=== PATIENT | male | born 1950 | race Caucasian/White ===

== ENCOUNTER → 2017-02-28 | Outpatient (CLI) | payer MEDICARE, BC | LOC: MW.CHUR 11:31 | PROVIDERS: ATTEND Urology | DX: R97.20 Elevated prostate specific antigen [PSA] (principal); N40.0 Benign prostatic hyperplasia without lower urinary tract symptoms; R33.9 Retention of urine, unspecified; N39.0 Urinary tract infection, site not specified | CPT/HCPCS: 36415; 51702; 51798; 81001; 84153; 87086; G0463 ==

== ENCOUNTER → 2017-03-05 | Outpatient (CLI) | payer MEDICARE, BC | LOC: MW.CHUR 08:00 | PROVIDERS: ATTEND Urology | DX: R33.9 Retention of urine, unspecified (principal) | CPT/HCPCS: 51798; G0463 ==

== ENCOUNTER 2017-07-10 14:38 | Emergency (ER) | payer MEDICARE, BC ==
--- NOTE | 2017-07-10 15:21 | EDM.PDOC ---
ED HPI GENERAL MEDICAL PROBLEM - General Chief Complaint: Cardiovascular Problem Stated Complaint: HIGH BP Time Seen by Provider: 07/10/17 15:01 - History of Present Illness INITIAL COMMENTS - FREE TEXT/NARRATIVE: HISTORY AND PHYSICAL: History of present illness: The patient is a 67-year-old male who follows at [facility] with Dr. Rasheed in with a history of hypertension and a defibrillator, I'm familiar with this patient as I treated him and cardioverted him for V. tach this past spring and he has since followed up with a field service representative at [facility] in [place]. He says he last saw Dr. Rasheed in the clinic mid May and there were no changes to his medication and he states compliance. The patient says that he follows his blood pressure at home and it was elevated so he went to [facility] for a blood pressure check and they noted it to be 200/80 and sent him here. According to Dr. Rasheed the patient did not to wait for him to address his elevation and he came here directly. The patient has no complaints of headache blurred vision numbness or tingling in his extremities, extremity weakness neck pain back pain chest pain shortness of breath nausea or vomiting. He says is completely asymptomatic. Review of systems: As per history of present illness and below otherwise all systems reviewed and negative. Past medical history: As per history of present illness and as reviewed below otherwise noncontributory. Surgical history: As per history of present illness and as reviewed below otherwise noncontributory. Social history: No reported history of drug or alcohol abuse. Family history: As per history of present illness and as reviewed below otherwise noncontributory. Physical exam: Gen.: Well-developed well-nourished man who is mildly overweight and nontoxic. Initial blood pressure on arrival here was 190/102, and repeat BP without any intervention it was 147/80 HEENT: Atraumatic, normocephalic, negative for conjunctival pallor or scleral icterus, mucous membranes moist, throat clear, neck supple, nontender, trachea midline. Lungs: Clear to auscultation, breath sounds equal bilaterally, chest nontender. Heart: S1S2, regular rate and rhythm there is a loud systolic ejection murmur at the left sternal border which patient says is old Abdomen: Soft, nondistended, nontender. Negative for masses or hepatosplenomegaly. Negative for costovertebral tenderness. Pelvis: Stable nontender. Genitourinary: Deferred. Rectal: Deferred. Extremities: Atraumatic, negative for cords or calf pain. Neurovascular unremarkable. No pedal edema or leg asymmetry Neuro: Awake, alert, oriented. Cranial nerves II through XII unremarkable. Cerebellum unremarkable. Motor and sensory unremarkable throughout. Exam nonfocal. Diagnostics: [] Therapeutics: [] As the patient did not want a full workup I discussed with Dr. Rasheed at 1508 adjusting his blood pressure medications, which Dr. Rasheed said he was planning on doing in light of these elevated pressures. We have decided to increase his Toprol 50 mg from once a day to twice a day and the patient is aware and will do this. He is aware that he should call and follow-up in the clinic and return here if he starts having any symptomatology of elevated blood pressures Impression: Hypertension with elevations Definitive disposition and diagnosis as appropriate pending reevaluation and review of above. Headache Pain Score (Numeric/FACES): 3 - Related Data Allergies Allergy/AdvReac Type Severity Reaction Status Date / Time No Known Allergies Allergy Verified 07/10/17 15:01 Home Meds: Home Meds Lisinopril 20 mg PO BID 11/26/14 [History] Verapamil [Verelan] 120 mg PO BID 11/26/14 [History] Warfarin Sodium 5 mg PO DAILY 11/26/14 [History] atorvaSTATin [Lipitor] 20 mg PO BEDTIME 06/16/15 [History] Cinnamon Bark [Cinnamon] 2,000 mg PO BID 08/22/15 [History] Flaxseed Oil [Flaxseed] 1,200 mg PO BID 08/22/15 [History] Amiodarone [Cordarone] 200 mg PO DAILY #30 tablet 11/03/16 [Rx] Amiodarone [Cordarone] 200 mg PO TID #31 tablet 11/03/16 [Rx] Past Medical History Other HEENT History: wears eyeglasses Cardiovascular History: Reports: Heart Murmur, Other (See Below) Other Cardiovascular History: heart murmur; atrial fibrillation Other Respiratory History: for booster dose of pneumonia Other Gastrointestinal History: polyp removal X 4 Genitourinary History: Reports: None Dermatologic History: Reports: Melanoma - Infectious Disease History Infectious Disease History: Reports: Shingles Other Infectious Disease History: SHINGLES APRIL 2015 - Past Surgical History HEENT Surgical History: Reports: None Cardiovascular Surgical History: Reports: Other (See Below) Other Cardiovascular Surgeries/Procedures: ablation 13 years ago Respiratory Surgical History: Reports: None GI Surgical History: Reports: Colonoscopy Male Surgical History: Reports: TURP-Transurethral Resection of Prostate Social & Family History - Family History Family Medical History: Noncontributory - Tobacco Use Smoking Status *Q: Never Smoker Second Hand Smoke Exposure: No - Caffeine Use Caffeine Use: Reports: Soda - Alcohol Use Number of Drinks Per Day: 0 - Recreational Drug Use Recreational Drug Use: No Drug Use in Last 12 Months: No ED ROS GENERAL - Review of Systems Review Of Systems: ROS reveals no pertinent complaints other than HPI. ED EXAM, GENERAL - Physical Exam Exam: See Below (See dictation) Course - Vital Signs Last Recorded V/S: Last Vital Signs Temp 36.3 C 07/10/17 15:01 Pulse 99 07/10/17 15:01 Resp 16 07/10/17 15:01 BP 190/102 H 07/10/17 15:01 Pulse Ox 96 07/10/17 15:01 Departure - Departure Time of Disposition: 15:21 Disposition: Home, Self-Care 01 Condition: Good Clinical Impression: Elevated blood pressure reading Hypertension Qualifiers: Hypertension type: unspecified Qualified Code(s): I10 - Essential (primary) hypertension Referrals: Ty Rasheed MD [Primary Care Provider] - Additional Instructions: The following information is given to patients seen in the emergency department who are being discharged to home. This information is to outline your options for follow-up care. We provide all patients seen in our emergency department with a follow-up referral. The need for follow-up, as well as the timing and circumstances, are variable depending upon the specifics of your emergency department visit. If you don't have a primary care physician on staff, we will provide you with a referral. We always advise you to contact your personal physician following an emergency department visit to inform them of the circumstance of the visit and for follow-up with them and/or the need for any referrals to a consulting specialist. The emergency department will also refer you to a specialist when appropriate. This referral assures that you have the opportunity for followup care with a specialist. All of these measure are taken in an effort to provide you with optimal care, which includes your followup. Under all circumstances we always encourage you to contact your private physician who remains a resource for coordinating your care. When calling for followup care, please make the office aware that this follow-up is from your recent emergency room visit. If for any reason you are refused follow-up, please contact the [facility] emergency department at and ask to speak to the emergency department charge nurse. [address] [place] [address] Please increase your Toprol to twice a day as we discussed. Please call and follow-up with Dr. Rasheed in the clinic and return to ER as needed and as we discussed
[2017-07-10 15:53] VITALS: BP 159/86
== END 2017-07-10 15:57 | disposition home or self-care (01) ==
LOC: MW.ED 14:38
DX: I10 Essential (primary) hypertension (principal); I48.91 Unspecified atrial fibrillation; Z85.820 Personal history of malignant melanoma of skin; Z98.890 Other specified postprocedural states; Z79.01 Long term (current) use of anticoagulants; Z79.899 Other long term (current) drug therapy
CPT/HCPCS: 99283

== ENCOUNTER 2017-07-20 10:29 | Day surgery (SDC) | payer MEDICARE, BC ==
[~2017-07-20 10:29] MED LIST: Lactated Ringers 1,000 ML IV SCH
[2017-07-20] MEDS ORDERED: cefOXitin 2 GM in Premix Bag 1 BAG IV ONE (10:49)
--- NOTE | 2017-07-20 10:56 | PCM.PREANE ---
Preanesthetic Assessment - Anesthesia/Transfusion/Family Hx Anesthesia History: Prior Anesthesia Without Reaction Other Type of Anesthesia Reaction Comment: Denies any known problem in past Family History of Anesthesia Reaction: No Transfusion History: No Prior Transfusion(s) - Review of Systems General: No Symptoms Pulmonary: No Symptoms Cardiovascular: No Symptoms Gastrointestinal: No Symptoms Neurological: No Symptoms Other: Reports: None - Physical Assessment NPO Status Date: 07/19/17 Height: 1.83 m Weight: 117.027 kg ASA Class: 3 Mental Status: Alert & Oriented x3 Airway Class: Mallampati = 2 Dentition: Reports: Normal Dentition ROM/Head Extension: Full Lungs: Clear to Auscultation, Normal Respiratory Effort Cardiovascular: Regular Rate, Regular Rhythm - Allergies Allergies/Adverse Reactions: Allergies Allergy/AdvReac Type Severity Reaction Status Date / Time No Known Allergies Allergy Verified 07/18/17 11:49 - Anesthesia Plan Pre-Op Medication Ordered: None (PMH hx afib, hx v tach, has AICD, on coumadin stopped x 4 days, HTN, HLD, ) - Acknowledgements Anesthesia Type Planned: MAC Pt an Appropriate Candidate for the Planned Anesthesia: Yes Alternatives and Risks of Anesthesia Discussed w Pt/Guardian: Yes Pt/Guardian Understands and Agrees with Anesthesia Plan: Yes PreAnesthesia Questionnaire Other HEENT History: wears glasses Cardiovascular History: Reports: Afib, High Cholesterol, Hypertension, Other ( See Below) Other Cardiovascular History: hx of v-tach, hx of mitral valve insufficiency Other Respiratory History: for booster dose of pneumonia Gastrointestinal History: Reports: Colon Polyp Other Gastrointestinal History: polyp removal X 4 Genitourinary History: Reports: BPH Endocrine/Metabolic History: Reports: Obesity/BMI 30+ Hematologic History: Reports: Anticoagulation Therapy Oncologic (Cancer) History: Reports: Other (See Below) Other Oncologic History: hx of 2 skin lesions on face removed Dermatologic History: Reports: Melanoma - Infectious Disease History Infectious Disease History: Reports: Shingles Other Infectious Disease History: SHINGLES APRIL 2015 - Past Surgical History Head Surgeries/Procedures: Reports: None Cardiovascular Surgical History: Reports: Cardiac Ablation, Other (See Below) Other Cardiovascular Surgeries/Procedures: defibrillator inserted GI Surgical History: Reports: Colonoscopy Male Surgical History: Reports: TURP-Transurethral Resection of Prostate - SUBSTANCE USE Smoking Status *Q: Never Smoker Second Hand Smoke Exposure: No Number of Drinks Per Day: 0 Recreational Drug Use History: No - HOME MEDS Home Medications: Home Meds Lisinopril 20 mg PO BID 11/26/14 [History] Warfarin Sodium 5 mg PO DAILY 11/26/14 [History] atorvaSTATin [Lipitor] 20 mg PO BEDTIME 06/16/15 [History] Cinnamon Bark [Cinnamon] 2,000 mg PO BID 08/22/15 [History] Flaxseed Oil [Flaxseed] 1,200 mg PO BID 08/22/15 [History] Cholecalciferol (Vitamin D3) [Vitamin D] 5,000 unit PO DAILY 07/10/17 [History] Lutein/Minerals/Vit A,C & E [Ocuvite] 1 each PO BID 07/10/17 [History] Metoprolol Succinate [Toprol XL] 50 mg PO BID 07/10/17 [History] Mexiletine HCl 150 mg PO TID 07/10/17 [History] - CURRENT (IN HOUSE) MEDS Current Meds: Current Medications Lactated Ringer's (Ringers, Lactated) 1,000 mls @ 125 mls/hr IV ASDIRECTED [facility] Cefoxitin Sodium 2 gm/ Premix 50 mls @ 100 mls/hr IV ONETIME ONE Stop: 07/20/17 11:18
[2017-07-20] MEDS ORDERED: Sodium Chloride 0.9% 20 ML ONE (11:20)
[2017-07-20] MEDS ORDERED: cefOXitin 1 GM Vial ONE (11:20)
[2017-07-20] MEDS ORDERED: Propofol 200 MG/20 ML SDV ONE (11:37)
[2017-07-20] MEDS ORDERED: Ondansetron 4 MG/2 ML SDV ONE (11:37)
[2017-07-20] MEDS ORDERED: Midazolam 1 MG/ML 2 ML SDV ONE (11:37)
[2017-07-20] MEDS ORDERED: fentaNYL 100 MCG/2 ML SDV ONE (11:38)
--- NOTE | 2017-07-20 12:14 | PCM.OPNOTE ---
- General Post-Op/Procedure Note Date of Surgery/Procedure: 07/20/17 Operative Procedure(s): Colonoscopy with cold transverse colon polypectomy Pre Op Diagnosis: Personal history of colon polyps Post-Op Diagnosis: Transverse colon polyp Anesthesia Technique: MAC (ASA III) Primary Surgeon: Jersey Baugh Electric Organ Inspector And Repairer: Briana Callaway Condition: Good Free Text/Narrative:: Intake & Output 07/20/17 07/20/17 07/20/17 03:59 11:59 19:59 Intake Total 700 Balance 700 Dictation [id number] CPT CODE 50812
[2017-07-20] MEDS ORDERED: Lactated Ringers 1,000 ML IV SCH (12:15)
[2017-07-20 12:30] VITALS: BP 118/68
--- NOTE | 2017-07-20 14:05 | OR ---
SURGEON: Jersey Baugh M.D. DATE OF PROCEDURE: 07/20/2017 OPERATION PERFORMED: Colonoscopy with cold transverse colon polypectomy. ANESTHESIA: MAC. ASA CLASSIFICATION: III. PREOPERATIVE DIAGNOSIS: Personal history of colon polyps. POSTOPERATIVE DIAGNOSIS: Small transverse colon polyp. DESCRIPTION OF PROCEDURE: The patient was taken to the endoscopy room, positioned on the endoscopy table in the left lateral decubitus position. Time-out was called for appropriate identification of the patient and procedure. Monitored anesthesia care was provided. The colonoscope was inserted into the rectum and advanced with minimal difficulty to the cecum, where the colonoscope was retroflexed to visualize the ascending colon from below. The colonoscope was then straightened and slowly withdrawn. The cecum and ascending colon showed no tumors, polyps, diverticula, or angiodysplastic changes. One small polyp was encountered in the transverse colon and removed with the cold biopsy forceps. No significant bleeding was noted. The remainder of the transverse colon, splenic flexure, descending colon, sigmoid colon, and rectum were very well visualized. Again, no tumors or polyps were seen. There was no evidence of inflammatory bowel disease nor any evidence of angiodysplasia. The colonoscope was withdrawn to the rectum and retroflexed to visualize the anal orifice from above. No tumors, polyps, or acute hemorrhoidal changes were noted. The colonoscope was then straightened, the rectum aspirated, and the colonoscope removed. The patient tolerated the procedure well and was taken to recovery room in stable condition. GIOVANNI / TOMMY /[id number]
--- NOTE | 2017-08-13 06:14 | PCM.SN ---
- Free Text/Narrative Note: Pixus waste amt should have been 70 instead of 80mg.
== END 2017-07-20 12:51 | disposition home or self-care (01) ==
LOC: MW.SDS 10:29
PROVIDERS: ATTEND Surgery
DX: Z12.11 Encounter for screening for malignant neoplasm of colon (principal); D12.3 Benign neoplasm of transverse colon; Z86.010 Personal history of colon polyps; I48.91 Unspecified atrial fibrillation; I10 Essential (primary) hypertension; I47.2 Ventricular tachycardia; N40.0 Benign prostatic hyperplasia without lower urinary tract symptoms; E78.00 Pure hypercholesterolemia, unspecified; E66.9 Obesity, unspecified; Z87.440 Personal history of urinary (tract) infections; Z87.74 Personal history of (corrected) congenital malformations of heart and circulatory system; Z80.0 Family history of malignant neoplasm of digestive organs; Z79.01 Long term (current) use of anticoagulants; Z79.899 Other long term (current) drug therapy; Z98.890 Other specified postprocedural states; Z68.35 Body mass index [BMI] 35.0-35.9, adult; Z95.810 Presence of automatic (implantable) cardiac defibrillator; Z90.79 Acquired absence of other genital organ(s); Z85.820 Personal history of malignant melanoma of skin
CPT/HCPCS: 36415; 45380; 85610; J0694; J2250; J2405; J3010; J7120; 00810; 88305; J2704

== ENCOUNTER 2017-08-12 08:37 | Emergency (ER) | payer MEDICARE, BC ==
[2017-08-12] MEDS ORDERED: Sodium Chloride 0.9% 1,000 ML IV ONE (08:40)
--- NOTE | 2017-08-12 08:56 | EDM.PDOC ---
ED HPI GENERAL MEDICAL PROBLEM - General Chief Complaint: Chest Pain Stated Complaint: MEDICATION SIDE EFFECT/IRREGULAR HEARTBEAT Time Seen by Provider: 08/12/17 08:56 Source of Information: Reports: Patient - History of Present Illness INITIAL COMMENTS - FREE TEXT/NARRATIVE: HISTORY AND PHYSICAL: History of present illness: []Patient with atrial fibrillation history presents with rapid heart rate sensation or palpitation over the last week, he has defibrillator placed and is followed by cardiology Frederick's next appointment is to October 17 for cardiology. He does not note any other symptomology such as fever nausea vomiting diarrhea constipation chest pain shortness breath headache dizziness Review of sys, no bowel or urine symptoms He arrived by private vehicle in no apparent distress speaks easily breathing nonlabored As per history of present illness and below otherwise all systems reviewed and negative. Past medical history: As per history of present illness and as reviewed below otherwise noncontributory. Surgical history: As per history of present illness and as reviewed below otherwise noncontributory. Social history: No reported history of drug or alcohol abuse. Family history: As per history of present illness and as reviewed below otherwise noncontributory. Physical exam: HEENT: Atraumatic, normocephalic, pupils reactive, negative for conjunctival pallor or scleral icterus, mucous membranes moist, throat clear, neck supple, nontender, trachea midline. Lungs: Clear to auscultation, breath sounds equal bilaterally, chest nontender. Heart: S1S2, regular, negative for clicks, rubs, or JVD. Abdomen: Soft, nondistended, nontender. Negative for masses or hepatosplenomegaly. Negative for costovertebral tenderness. Pelvis: Stable nontender. Genitourinary: Deferred. Rectal: Deferred. Extremities: Atraumatic, negative for cords or calf pain. Neurovascular unremarkable. Neuro: Awake, alert, oriented. Cranial nerves II through XII unremarkable. Cerebellum unremarkable. Motor and sensory unremarkable throughout. Exam nonfocal. Diagnostics: []Lab as below EKG Therapeutics: []1 L normal saline bolus Impression: Atrial fibrillation her rate 88 Chronic history of hypertension mitral valve prolapse at baseline Hypothyroidism stage II CK D all of baseline efinitive disposition and diagnosis as appropriate pending reevaluation and review of above. - Related Data Allergies Allergy/AdvReac Type Severity Reaction Status Date / Time No Known Allergies Allergy Verified 07/18/17 11:49 Home Meds: Home Meds Lisinopril 20 mg PO BID 11/26/14 [History] Warfarin Sodium 5 mg PO DAILY 11/26/14 [History] atorvaSTATin [Lipitor] 20 mg PO BEDTIME 06/16/15 [History] Cinnamon Bark [Cinnamon] 2,000 mg PO BID 08/22/15 [History] Flaxseed Oil [Flaxseed] 1,200 mg PO BID 08/22/15 [History] Cholecalciferol (Vitamin D3) [Vitamin D] 5,000 unit PO DAILY 07/10/17 [History] Lutein/Minerals/Vit A,C & E [Ocuvite] 1 each PO BID 07/10/17 [History] Metoprolol Succinate [Toprol XL] 50 mg PO BID 07/10/17 [History] Mexiletine HCl 150 mg PO TID 07/10/17 [History] Past Medical History Other HEENT History: wears glasses Cardiovascular History: Reports: Afib, High Cholesterol, Hypertension, Other ( See Below) Other Cardiovascular History: hx of v-tach, hx of mitral valve insufficiency Other Respiratory History: for booster dose of pneumonia Gastrointestinal History: Reports: Colon Polyp Other Gastrointestinal History: polyp removal X 4 Genitourinary History: Reports: BPH Endocrine/Metabolic History: Reports: Obesity/BMI 30+ Hematologic History: Reports: Anticoagulation Therapy Oncologic (Cancer) History: Reports: Other (See Below) Other Oncologic History: hx of 2 skin lesions on face removed Dermatologic History: Reports: Melanoma - Infectious Disease History Infectious Disease History: Reports: Shingles Other Infectious Disease History: SHINGLES APRIL 2015 - Past Surgical History Head Surgeries/Procedures: Reports: None HEENT Surgical History: Reports: None Cardiovascular Surgical History: Reports: Cardiac Ablation, Other (See Below) Other Cardiovascular Surgeries/Procedures: defibrillator inserted Respiratory Surgical History: Reports: None GI Surgical History: Reports: Colonoscopy Male Surgical History: Reports: TURP-Transurethral Resection of Prostate Other Male Surgeries/Procedures: MAY 2015 Social & Family History - Family History Family Medical History: Noncontributory - Tobacco Use Smoking Status *Q: Never Smoker Second Hand Smoke Exposure: No - Caffeine Use Caffeine Use: Reports: Coffee - Alcohol Use Number of Drinks Per Day: 0 - Recreational Drug Use Recreational Drug Use: No Drug Use in Last 12 Months: No ED ROS GENERAL - Review of Systems Review Of Systems: ROS reveals no pertinent complaints other than HPI. ED EXAM, GENERAL - Physical Exam Exam: See Below Course - Vital Signs Last Recorded V/S: Last Vital Signs Temp 36.1 C 08/12/17 08:43 Pulse 81 08/12/17 09:15 Resp 20 08/12/17 09:15 BP 166/94 H 08/12/17 09:15 Pulse Ox 95 08/12/17 09:15 Orthostatic Blood Pressure [ 158/85 Standing] Orthostatic Blood Pressure [ 156/84 Sitting] Orthostatic Blood Pressure [ 161/87 Supine] - Orders/Labs/Meds Orders: Active Orders 24 hr Category Date Time Status EKG Documentation Completion [RC] STAT Care 08/12/17 08:40 Active Orthostatic Vital Signs [RC] ASDIRECTED Care 08/12/17 09:25 Active Labs: Laboratory Tests 08/12/17 08/12/17 08/12/17 Range/Units 08:50 08:50 08:50 WBC 7.12 (4.0-11.0) K/uL RBC 4.89 (4.50-5.90) M/uL Hgb 14.8 (13.0-17.0) g/dL Hct 44.2 (38.0-50.0) % MCV 90.4 (80.0-98.0) fL MCH 30.3 (27.0-32.0) pg MCHC 33.5 (31.0-37.0) g/dL RDW Std Deviation 44.7 (28.0-62.0) fl RDW Coeff of Arlene 14 (11.0-15.0) % Plt Count 174 (150-400) K/uL MPV 11.10 (7.40-12.00) fL Neut % (Auto) 61.7 (48.0-80.0) % Lymph % (Auto) 25.4 (16.0-40.0) % [place] % (Auto) 10.8 (0.0-15.0) % Eos % (Auto) 1.5 (0.0-7.0) % Baso % (Auto) 0.6 (0.0-1.5) % Neut # (Auto) 4.4 (1.4-5.7) K/uL Lymph # (Auto) 1.8 (0.6-2.4) K/uL [place] # (Auto) 0.8 (0.0-0.8) K/uL Eos # (Auto) 0.1 (0.0-0.7) K/uL Baso # (Auto) 0.0 (0.0-0.1) K/uL Nucleated RBC % 0.0 /100WBC Nucleated RBCs # 0 K/uL INR (0.86-1.11) Sodium 140 (136-146) mmol/L Potassium 4.1 (3.5-5.1) mmol/L Chloride 105 (98-110) mmol/L Carbon Dioxide 24 (21-31) mmol/L BUN 19 (6.0-23.0) mg/dL Creatinine 1.2 (0.6-1.5) mg/dL Est Cr Clr Drug Dosing 63.77 mL/min Estimated GFR (MDRD) > 60.0 ml/min Glucose 141 H (60-110) mg/dL Calcium 9.9 (8.8-10.8) mg/dL Total Bilirubin 2.3 H (0.1-1.5) mg/dL AST 24 (5-40) IU/L ALT 23 (8-54) IU/L Alkaline Phosphatase 66 (40-150) Troponin I < 0.10 (0.0-0.29) NG/ML Total Protein 7.5 (6.0-8.0) g/dL Albumin 4.2 (3.4-4.8) g/dL Globulin 3.3 (2.0-3.5) g/dL Albumin/Globulin Ratio 1.3 (1.3-2.8) Urine Color Urine Appearance Urine pH (5.0-8.0) Ur Specific [place] (1.001-1.035) Urine Protein (NEGATIVE) mg/dL Urine Glucose (UA) (NEGATIVE) mg/dL Urine Ketones (NEGATIVE) mg/dL Urine Occult Blood (NEGATIVE) Urine Nitrite (NEGATIVE) Urine Bilirubin (NEGATIVE) Urine Urobilinogen (<2.0) EU/dL Ur Leukocyte Esterase (NEGATIVE) Urine RBC (0-2/HPF) Urine WBC (0-5/HPF) Ur Epithelial Cells (NONE-FEW) Amorphous Sediment (NEGATIVE) Urine Bacteria (NEGATIVE) Urine Mucus (NONE-MOD) Urine Opiates Screen (NEGATIVE) Ur Oxycodone Screen (NEGATIVE) Urine Methadone Screen (NEGATIVE) Ur Barbiturates Screen (NEGATIVE) Ur Phencyclidine Scrn (NEGATIVE) Ur Amphetamine Screen (NEGATIVE) U Methamphetamines Scrn (NEGATIVE) U Benzodiazepines Scrn (NEGATIVE) U Cocaine Metab Screen (NEGATIVE) U Marijuana (THC) Screen (NEGATIVE) 08/12/17 08/12/17 08/12/17 Range/Units 08:50 09:15 09:15 WBC (4.0-11.0) K/uL RBC (4.50-5.90) M/uL Hgb (13.0-17.0) g/dL Hct (38.0-50.0) % MCV (80.0-98.0) fL MCH (27.0-32.0) pg MCHC (31.0-37.0) g/dL RDW Std Deviation (28.0-62.0) fl RDW Coeff of Arlene (11.0-15.0) % Plt Count (150-400) K/uL MPV (7.40-12.00) fL Neut % (Auto) (48.0-80.0) % Lymph % (Auto) (16.0-40.0) % [place] % (Auto) (0.0-15.0) % Eos % (Auto) (0.0-7.0) % Baso % (Auto) (0.0-1.5) % Neut # (Auto) (1.4-5.7) K/uL Lymph # (Auto) (0.6-2.4) K/uL [place] # (Auto) (0.0-0.8) K/uL Eos # (Auto) (0.0-0.7) K/uL Baso # (Auto) (0.0-0.1) K/uL Nucleated RBC % /100WBC Nucleated RBCs # K/uL INR 1.97 H (0.86-1.11) Sodium (136-146) mmol/L Potassium (3.5-5.1) mmol/L Chloride (98-110) mmol/L Carbon Dioxide (21-31) mmol/L BUN (6.0-23.0) mg/dL Creatinine (0.6-1.5) mg/dL Est Cr Clr Drug Dosing mL/min Estimated GFR (MDRD) ml/min Glucose (60-110) mg/dL Calcium (8.8-10.8) mg/dL Total Bilirubin (0.1-1.5) mg/dL AST (5-40) IU/L ALT (8-54) IU/L Alkaline Phosphatase (40-150) Troponin I (0.0-0.29) NG/ML Total Protein (6.0-8.0) g/dL Albumin (3.4-4.8) g/dL Globulin (2.0-3.5) g/dL Albumin/Globulin Ratio (1.3-2.8) Urine Color YELLOW Urine Appearance CLEAR Urine pH 5.5 (5.0-8.0) Ur Specific [place] >= 1.030 (1.001-1.035) Urine Protein 30 (NEGATIVE) mg/dL Urine Glucose (UA) NEGATIVE (NEGATIVE) mg/dL Urine Ketones NEGATIVE (NEGATIVE) mg/dL Urine Occult Blood NEGATIVE (NEGATIVE) Urine Nitrite NEGATIVE (NEGATIVE) Urine Bilirubin NEGATIVE (NEGATIVE) Urine Urobilinogen 0.2 (<2.0) EU/dL Ur Leukocyte Esterase NEGATIVE (NEGATIVE) Urine RBC 0-2 (0-2/HPF) Urine WBC 3-4 (0-5/HPF) Ur Epithelial Cells RARE (NONE-FEW) Amorphous Sediment NOT SEEN (NEGATIVE) Urine Bacteria FEW (NEGATIVE) Urine Mucus NOT SEEN (NONE-MOD) Urine Opiates Screen NEGATIVE (NEGATIVE) Ur Oxycodone Screen NEGATIVE (NEGATIVE) Urine Methadone Screen NEGATIVE (NEGATIVE) Ur Barbiturates Screen NEGATIVE (NEGATIVE) Ur Phencyclidine Scrn NEGATIVE (NEGATIVE) Ur Amphetamine Screen NEGATIVE (NEGATIVE) U Methamphetamines Scrn NEGATIVE (NEGATIVE) U Benzodiazepines Scrn NEGATIVE (NEGATIVE) U Cocaine Metab Screen NEGATIVE (NEGATIVE) U Marijuana (THC) Screen NEGATIVE (NEGATIVE) Meds: Medications Discontinued Medications Generic Name Dose Route Start Last Admin Trade Name Freq PRN Reason Stop Dose Admin Sodium Chloride 1,000 mls @ 999 mls/hr 08/12/17 08:40 08/12/17 09:01 Normal Saline IV 08/12/17 09:40 999 mls/hr STAT ONE Administration Departure - Departure Time of Disposition: 09:53 Disposition: Home, Self-Care 01 Condition: Good Clinical Impression: Atrial fibrillation with controlled ventricular rate - Discharge Information Referrals: PCP,None [Primary Care Provider] - Forms: ED Department Discharge Additional Instructions: Continue medications as directed Return if symptoms persist or worsen or new concerning symptoms develop Follow-up with primary care in 2 weeks sooner as needed, on follow-up with primary care repeat INR to check Coumadin levels Follow with cardiology as scheduled in September The following information is given to patients seen in the emergency department who are being discharged to home. This information is to outline your options for follow-up care. We provide all patients seen in our emergency department with a follow-up referral. The need for follow-up, as well as the timing and circumstances, are variable depending upon the specifics of your emergency department visit. If you don't have a primary care physician on staff, we will provide you with a referral. We always advise you to contact your personal physician following an emergency department visit to inform them of the circumstance of the visit and for follow-up with them and/or the need for any referrals to a consulting specialist. The emergency department will also refer you to a specialist when appropriate. This referral assures that you have the opportunity for follow-up care with a specialist. All of these measure are taken in an effort to provide you with optimal care, which includes your follow-up. Under all circumstances we always encourage you to contact your private physician who remains a resource for coordinating your care. When calling for follow-up care, please make the office aware that this follow-up is from your recent emergency room visit. If for any reason you are refused follow-up, please contact the [facility] emergency department at and asked to speak to the emergency department charge nurse. - My Orders Last 24 Hours: My Active Orders 08/12/17 08:40 EKG Documentation Completion [RC] STAT 08/12/17 09:25 Orthostatic Vital Signs [RC] ASDIRECTED - Assessment/Plan Last 24 Hours: My Active Orders 08/12/17 08:40 EKG Documentation Completion [RC] STAT 08/12/17 09:25 Orthostatic Vital Signs [RC] ASDIRECTED
[2017-08-12 09:29] LABS: CHLORIDE,CL 105 mmol/L (98-110); SODIUM,NA 140 mmol/L (136-146)
[2017-08-12 10:16] VITALS: BP 146/85
== END 2017-08-12 10:17 | disposition home or self-care (01) ==
LOC: MW.ED 08:37
DX: I48.91 Unspecified atrial fibrillation (principal); E66.9 Obesity, unspecified; E03.9 Hypothyroidism, unspecified; I12.9 Hypertensive chronic kidney disease with stage 1 through stage 4 chronic kidney disease, or unspecified chronic kidney disease; N18.2 Chronic kidney disease, stage 2 (mild); E78.00 Pure hypercholesterolemia, unspecified; Z98.890 Other specified postprocedural states; Z85.820 Personal history of malignant melanoma of skin; Z79.899 Other long term (current) drug therapy; Z79.01 Long term (current) use of anticoagulants; Z95.810 Presence of automatic (implantable) cardiac defibrillator
CPT/HCPCS: 36415; 80053; 80305; 81001; 84484; 85025; 85610; 93005; 96360; 99284; J7040; 99283

== ENCOUNTER 2021-01-21 06:46 | Day surgery (SDC) | payer MEDICARE, BC ==
[~2021-01-21 06:46] MED LIST changes: +cefOXitin 2 GM in Premix Bag 1 BAG IV ONE
[2021-01-21] MEDS ORDERED: Lidocaine 2% 5 ML SDV ONE (07:25)
[2021-01-21] MEDS ORDERED: fentaNYL 100 MCG/2 ML SDV ONE (07:26)
[2021-01-21] MEDS ORDERED: Propofol 200 MG/20 ML SDV ONE (07:26)
[2021-01-21] MEDS ORDERED: cefOXitin 100 ML ONE (07:27)
--- NOTE | 2021-01-21 07:43 | PCM.PREANE ---
Preanesthetic Assessment - Anesthesia/Transfusion/Family Hx Anesthesia History: Prior Anesthesia Reaction Other Type of Anesthesia Reaction Comment: Denies any known problem in past Family History of Anesthesia Reaction: No Transfusion History: Prior Transfusion Without Reaction Intubation History: Unknown - Review of Systems General: No Symptoms Pulmonary: No Symptoms Cardiovascular: No Symptoms Gastrointestinal: No Symptoms, Other (h/o multiple colon polyps) Neurological: No Symptoms Other: Reports: None - Physical Assessment Height: 6 ft Weight: 118.388 kg ASA Class: 3 Mental Status: Alert & Oriented x3 Airway Class: Mallampati = 2 Dentition: Reports: New Post(s) (x2 right lower (back), x2 left upper (back)) Thyro-Mental Finger Breadths: 3 Mouth Opening Finger Breadths: 2 ROM/Head Extension: Full Lungs: Clear to Auscultation, Normal Respiratory Effort Cardiovascular: Regular Rate, Irregular Rhythm - Allergies Allergies/Adverse Reactions: Allergies Allergy/AdvReac Type Severity Reaction Status Date / Time No Known Allergies Allergy Verified 01/17/21 10:59 - Blood Blood Available: No - Anesthesia Plan Pre-Op Medication Ordered: None - Acknowledgements Anesthesia Type Planned: MAC Pt an Appropriate Candidate for the Planned Anesthesia: Yes Alternatives and Risks of Anesthesia Discussed w Pt/Guardian: Yes Pt/Guardian Understands and Agrees with Anesthesia Plan: Yes PreAnesthesia Questionnaire HEENT History: Reports: Other (See Below) Other HEENT History: wears glasses Cardiovascular History: Reports: Afib, High Cholesterol, Hypertension, Other (See Below) (cardiac ablation '02, s/p PM/defibrilator placement 01/12, s/p MV repair (annuloplasty) 06/17, EF 55-60 % 08/17, A.fib at present ( plus LAFB)) Other Cardiovascular History: hx of v-tach, hx of mitral valve insufficiency Other Respiratory History: for booster dose of pneumonia Gastrointestinal History: Reports: Colon Polyp Other Gastrointestinal History: polyp removal X 4 Genitourinary History: Reports: BPH Endocrine/Metabolic History: Reports: Obesity/BMI 30+ (BMI 35.4) Hematologic History: Reports: Anticoagulation Therapy Oncologic (Cancer) History: Reports: Other (See Below) Other Oncologic History: some type of skin cancer removed from above his eye Dermatologic History: Reports: Melanoma - Infectious Disease History Infectious Disease History: Reports: Shingles Other Infectious Disease History: SHINGLES APRIL 2015 - Past Surgical History Head Surgeries/Procedures: Reports: None Cardiovascular Surgical History: Reports: AICD, Cardiac Ablation, Other (See Below) Other Cardiovascular Surgeries/Procedures: Mitral Valve Repair GI Surgical History: Reports: Colonoscopy (x5) Male Surgical History: Reports: Prostate Biopsy Dermatological Surgical History: Reports: Skin Biopsy - SUBSTANCE USE Tobacco Use Status *Q: Never Tobacco User Recreational Drug Use History: No - HOME MEDS Home Medications: Home Meds Warfarin Sodium 5 mg PO BEDTIME 11/26/14 [History] atorvaSTATin [Lipitor] 20 mg PO BEDTIME 06/16/15 [History] Cinnamon Bark [Cinnamon] 1,000 mg PO DAILY 08/22/15 [History] Flaxseed Oil [Flaxseed] 1,200 mg PO BID 08/22/15 [History] Cholecalciferol (Vitamin D3) [Vitamin D] 1,000 unit PO DAILY 07/10/17 [History] Lutein/Minerals/Vit A,C & E [Ocuvite] 1 each PO DAILY 07/10/17 [History] Metoprolol Succinate [Toprol XL] 400 mg PO BEDTIME 07/10/17 [History] Mexiletine HCl 150 mg PO TID 07/10/17 [History] Aspirin [Adult Low Dose Aspirin EC] 81 mg PO DAILY 01/17/21 [History] Diltiazem [Dilacor XR] 240 mg PO QAM 01/17/21 [History] Finasteride 5 mg PO DAILY 01/17/21 [History] Lutein 20 mg PO DAILY 01/17/21 [History] - CURRENT (IN HOUSE) MEDS Current Meds: Current Medications Lactated Ringer's (Ringers, Lactated) 1,000 mls @ 125 mls/hr IV ASDIRECTED ROSANGELA Discontinued Medications Fentanyl (Fentanyl 100 Mcg/2 Ml Sdv) Confirm Administered Dose 100 mcg .ROUTE .STK-MED ONE Stop: 01/21/21 07:27 Cefoxitin Sodium 2 gm/ Premix 50 mls @ 100 mls/hr IV ONETIME ONE Stop: 01/21/21 06:59 Cefoxitin Sodium (Mefoxin In Dextrose,Iso-Osm 1 Gm/50 Ml) Confirm Administered Dose 100 mls @ as directed .ROUTE .STK-MED ONE Stop: 01/21/21 07:28 Lidocaine (Lidocaine 2% 5 Ml Sdv) Confirm Administered Dose 5 ml .ROUTE .STK-MED ONE Stop: 01/21/21 07:26 Propofol (Propofol 200 Mg/20 Ml Sdv) Confirm Administered Dose 200 mg .ROUTE .STK-MED ONE Stop: 01/21/21 07:27
[2021-01-21] MEDS ORDERED: Lactated Ringers 1,000 ML IV SCH (09:15)
--- NOTE | 2021-01-21 09:15 | PCM.OPNOTE ---
- General Post-Op/Procedure Note Date of Surgery/Procedure: 01/21/21 Operative Procedure(s): Colonoscopy with cold mid sigmoid, distal sigmoid and rectal polypectomies. Pre Op Diagnosis: Personal history of colon polyps. Family history of colon cancer. Post-Op Diagnosis: Mid and distal sigmoid polyps. Rectal polyp. Mild sigmoid diverticulosis. Anesthesia Technique: MAC (ASA III) Primary Surgeon: Jersey Baugh Snow Removal/Plowing: Marcelo Rahman Snow Removal/Plowing: Cassia Hughes Condition: Good Free Text/Narrative:: DICTATION [id number] CPT CODE 75637
--- NOTE | 2021-01-21 09:47 | PCM.POSTAN ---
POST ANESTHESIA ASSESSMENT - MENTAL STATUS Mental Status: Alert, Oriented - VITAL SIGNS Vital Signs: Last Vital Signs Temp 37.2 C 01/21/21 07:30 Pulse 73 01/21/21 07:30 Resp 16 01/21/21 07:30 BP 178/87 H 01/21/21 07:30 Pulse Ox 97 01/21/21 07:30 - RESPIRATORY Respiratory Status: Respiratory Rate WNL, Airway Patent, O2 Saturation Stable - CARDIOVASCULAR CV Status: Pulse Rate WNL, Blood Pressure Stable - GASTROINTESTINAL GI Status: No Symptoms - PAIN Pain Score: 0 - POST OP HYDRATION Hydration Status: Adequate & Stable - OBSERVATIONS Free Text/Narrative:: No anesthesia problems
--- NOTE | 2021-01-21 09:48 | PCM48HPAN ---
Post Anesthesia Note - EVALUATION WITHIN 48HRS OF ANESTHETIC Vital Signs in Normal Range: Yes Patient Participated in Evaluation: Yes Respiratory Function Stable: Yes Airway Patent: Yes Cardiovascular Function Stable: Yes Hydration Status Stable: Yes Pain Control Satisfactory: Yes Nausea and Vomiting Control Satisfactory: Yes Mental Status Recovered: Yes Vital Signs: Last Vital Signs Temp 37.2 C 01/21/21 07:30 Pulse 73 01/21/21 07:30 Resp 16 01/21/21 07:30 BP 178/87 H 01/21/21 07:30 Pulse Ox 97 01/21/21 07:30 - COMMENTS/OBSERVATIONS Free Text/Narrative:: No anesthesia problems, patient skipped recovery room stage of postoperative care
[2021-01-21 10:04] VITALS: BP 157/85; PULSE 62
--- NOTE | 2021-01-21 15:40 | OR ---
SURGEON: Jersey Baugh M.D. DATE OF PROCEDURE: 01/21/2021 OPERATION PERFORMED: Colonoscopy with multiple cold polypectomies from the mid and distal sigmoid colon and rectum. PRIMARY SURGEON: Jersey Baugh M.D. OFFICE AGENT: Dr. Artis. SECOND VP PRODUCT: KESHAV Candelaria student. ANESTHESIA: MAC. ASA CLASSIFICATION: III. PREOPERATIVE DIAGNOSES: 1. Personal history of colon polyps. 2. Family history of colon cancer. POSTOPERATIVE DIAGNOSES: 1. Mid sigmoid polyp. 2. Distal sigmoid polyp. 3. Rectal polyp. 4. Mild sigmoid diverticulosis. DESCRIPTION OF PROCEDURE: The patient was taken to the endoscopy room and positioned on the endoscopy table in the left lateral decubitus position. Time-out was called for appropriate identification of the patient and procedure. Monitored anesthesia care was provided. The colonoscope was inserted into the rectum and advanced with minimal difficulty to the cecum. The cecum was identified by internal landmarks and external pressure. The colonoscope was retroflexed to visualize the ascending colon from below, then straightened, and slowly withdrawn. The cecum, ascending colon, hepatic flexure, transverse colon, splenic flexure, and descending colon showed no tumors, polyps, diverticula, or angiodysplastic changes. The sigmoid colon demonstrated a few scattered diverticula. Two polyps were encountered in the sigmoid colon, one in the mid region and one in the distal. These were separately removed with cold biopsy forceps and sent for histologic analysis. A third polyp was encountered in the rectum and also removed with cold biopsy forceps. The colonoscope was then retroflexed to visualize the anal orifice from above. No tumors or polyps were seen and there were no acute hemorrhoidal changes. The colonoscope was then straightened, the rectum aspirated, and the colonoscope removed. The patient tolerated the procedure well and was taken to recovery room in stable condition. GIOVANNI / USHAL /[id number] QIGN
== END 2021-01-21 09:45 | disposition home or self-care (01) ==
LOC: MW.SDS 06:46
PROVIDERS: ATTEND Surgery
DX: Z12.11 Encounter for screening for malignant neoplasm of colon (principal); D12.5 Benign neoplasm of sigmoid colon; K57.30 Diverticulosis of large intestine without perforation or abscess without bleeding; D12.8 Benign neoplasm of rectum; E66.9 Obesity, unspecified; E78.00 Pure hypercholesterolemia, unspecified; I48.20 Chronic atrial fibrillation, unspecified; I10 Essential (primary) hypertension; Z80.0 Family history of malignant neoplasm of digestive organs; Z79.01 Long term (current) use of anticoagulants; Z79.82 Long term (current) use of aspirin; Z79.899 Other long term (current) drug therapy; Z98.890 Other specified postprocedural states; Z95.810 Presence of automatic (implantable) cardiac defibrillator; Z68.35 Body mass index [BMI] 35.0-35.9, adult
CPT/HCPCS: 45380; J0694; J2704; J3010; J7120

== ENCOUNTER 2022-04-05 20:55 | Inpatient (IN) | payer MEDICARE, BC ==
[2022-04-05] MEDS ORDERED: Sodium Chloride 0.9% 2.5 ML Syringe FLUSH PRN (21:32)
[2022-04-05] MEDS ORDERED: cefTRIAXone 1 GM in Sodium Chloride 0.9% 50 ML IV ONE (21:32)
[2022-04-05] MEDS ORDERED: Sodium Chloride 0.9% 1,000 ML IV ONE ×3 (21:32→22:50)
[2022-04-05] MEDS ORDERED: Sodium Chloride 0.9% 10 ML Syringe FLUSH PRN (21:32)
[2022-04-05 21:58] LABS: CORONAVIRUS COVID-19 NAA NEGATIVE (NEGATIVE); INFLUENZA A NAA NEGATIVE (NEGATIVE); INFLUENZA B NAA NEGATIVE (NEGATIVE)
[2022-04-05] MEDS ORDERED: Ondansetron 4 MG/2 ML SDV IVPUSH ONE (22:30)
[2022-04-05 22:33] LABS: CARBON DIOXIDE,CO2 28.2 mmol/L (21.0-32.0); POTASSIUM,K 3.3 mmol/L (3.5-5.1)
[2022-04-05 22:35] LABS: ESTIMATED GFR 34.9 ml/min
[2022-04-05] MEDS ORDERED: Sodium Chloride 0.9% 500 ML IV ONE (22:51)
[2022-04-06] MEDS ORDERED: Ondansetron 4 MG/2 ML SDV IVPUSH PRN (00:03)
[2022-04-06] MEDS ORDERED: Albuterol/Ipratropium 3.0-0.5 MG/3 ML Neb Soln NEB PRN (00:03)
[2022-04-06] MEDS: Lactated Ringers 1,000 ML IV SCH ×3 (00:40→17:30)
[2022-04-06 03:34] LABS: CARBON DIOXIDE,CO2 25.7 mmol/L (21.0-32.0); POTASSIUM,K 3.1 mmol/L (3.5-5.1)
[2022-04-06 03:46] LABS: ESTIMATED GFR 45.9 ml/min
[2022-04-06] MEDS ORDERED: Magnesium Sulfate/Water 2 GM in Premix Bag 1 BAG IV ONE ×2 (05:06→14:12)
[2022-04-06] MEDS ORDERED: Magnesium Oxide 400 MG Tab PO ONE (05:07)
[2022-04-06] MEDS ORDERED: Potassium Chloride 20 MEQ Tab.ER PO ONE ×2 (05:08→14:14)
[2022-04-06] MEDS: Pantoprazole 40 MG in Sodium Chloride 0.9% 10 ML IVPUSH SCH (08:59)
[2022-04-06] MEDS ORDERED: cefTRIAXone 1 GM in Sodium Chloride 0.9% 50 ML IV SCH (09:00)
[2022-04-06] MEDS ORDERED: cefTRIAXone 1 GM in Sodium Chloride 0.9% 50 ML IV ONE (09:21)
[2022-04-06] MEDS: Warfarin Sliding Scale PO SCH (13:55)
[2022-04-06] MEDS ORDERED: Warfarin 5 MG Tab PO SCH (14:00)
[2022-04-06] MEDS ORDERED: Metoprolol Succinate 100 MG Tab.ER PO ONE (14:32)
[2022-04-06] MEDS: Acidophilus with Citrus Pectin/L.acidophilus Tab PO SCH (16:31)
[2022-04-06] MEDS: atorvaSTATin 20 MG Tab PO SCH (20:24)
[2022-04-06] MEDS ORDERED: Metoprolol Succinate 100 MG Tab.ER PO SCH (21:00)
[2022-04-07] MEDS ORDERED: Loperamide 2 MG Cap PO PRN (00:42)
[2022-04-07] MEDS: Lactated Ringers 1,000 ML IV SCH (02:01)
[2022-04-07 07:21] LABS: CARBON DIOXIDE,CO2 26.2 mmol/L (21.0-32.0); POTASSIUM,K 3.4 mmol/L (3.5-5.1)
[2022-04-07 07:26] LABS: ESTIMATED GFR 59.3 ml/min
[2022-04-07] MEDS: Aspirin 81 MG Tab.EC PO SCH (08:47)
[2022-04-07] MEDS: Acidophilus with Citrus Pectin/L.acidophilus Tab PO SCH (08:47)
[2022-04-07] MEDS: cefTRIAXone 2 GM in Premix Bag 1 BAG IV SCH (08:47)
[2022-04-07] MEDS: Finasteride 5 MG Tab PO SCH (08:47)
[2022-04-07] MEDS: Pantoprazole 40 MG in Sodium Chloride 0.9% 10 ML IVPUSH SCH (08:48)
[2022-04-07] MEDS ORDERED: DILTIAZEM 240 MG PO SCH (09:00)
[2022-04-07] MEDS ORDERED: Potassium Chloride 20 MEQ Tab.ER PO ONE (09:36)
[2022-04-07] MEDS: Levofloxacin/Dextrose 5%-Water 750 MG in Premix Bag 1 BAG IV SCH (10:51)
[2022-04-07] MEDS: Metoprolol Succinate 100 MG Tab.ER PO SCH (10:52)
[2022-04-07] MEDS ORDERED: Warfarin 5 MG Tab PO SCH (14:00)
[2022-04-07] MEDS ORDERED: Morphine 2 MG/ML SYRINGE IVPUSH PRN (14:05)
[2022-04-07] MEDS: Warfarin Sliding Scale PO SCH (14:17)
[2022-04-07] MEDS: atorvaSTATin 20 MG Tab PO SCH (21:03)
[2022-04-08 08:07] LABS: BLOOD UREA NITROGEN,BUN 14 mg/dL (7.0-18.0); CARBON DIOXIDE,CO2 27.6 mmol/L (21.0-32.0); CHLORIDE,CL 101 mmol/L (98-107); GLUCOSE RANDOM 95 mg/dL (74-106); POTASSIUM,K 3.5 mmol/L (3.5-5.1); SODIUM,NA 136 mmol/L (136-148)
[2022-04-08 08:10] LABS: ESTIMATED GFR > 60.0 ml/min
[2022-04-08] MEDS: Metoprolol Succinate 100 MG Tab.ER PO SCH (08:32)
[2022-04-08] MEDS: Acidophilus with Citrus Pectin/L.acidophilus Tab PO SCH (08:33)
[2022-04-08] MEDS: Finasteride 5 MG Tab PO SCH (08:33)
[2022-04-08] MEDS: Aspirin 81 MG Tab.EC PO SCH (08:33)
[2022-04-08] MEDS: Pantoprazole 40 MG in Sodium Chloride 0.9% 10 ML IVPUSH SCH (08:33)
[2022-04-08] MEDS: cefTRIAXone 2 GM in Premix Bag 1 BAG IV SCH (08:39)
[2022-04-08] MEDS: Levofloxacin/Dextrose 5%-Water 750 MG in Premix Bag 1 BAG IV SCH (11:04)
[2022-04-08] MEDS: Warfarin Sliding Scale PO SCH (13:59)
[2022-04-08] MEDS ORDERED: Warfarin 5 MG Tab PO SCH (14:00)
[2022-04-08] MEDS: atorvaSTATin 20 MG Tab PO SCH (20:10)
[2022-04-09 07:37] LABS: BLOOD UREA NITROGEN,BUN 16 mg/dL (7.0-18.0); CARBON DIOXIDE,CO2 29.2 mmol/L (21.0-32.0); CHLORIDE,CL 102 mmol/L (98-107); GLUCOSE RANDOM 103 mg/dL (74-106); POTASSIUM,K 3.4 mmol/L (3.5-5.1); SODIUM,NA 137 mmol/L (136-148)
[2022-04-09 07:38] LABS: ESTIMATED GFR > 60.0 ml/min
[2022-04-09] MEDS: Metoprolol Succinate 100 MG Tab.ER PO SCH (08:50)
[2022-04-09] MEDS: Acidophilus with Citrus Pectin/L.acidophilus Tab PO SCH (08:51)
[2022-04-09] MEDS: cefTRIAXone 2 GM in Premix Bag 1 BAG IV SCH (08:51)
[2022-04-09] MEDS: Finasteride 5 MG Tab PO SCH (08:51)
[2022-04-09] MEDS: Pantoprazole 40 MG in Sodium Chloride 0.9% 10 ML IVPUSH SCH (08:51)
[2022-04-09] MEDS: Aspirin 81 MG Tab.EC PO SCH (08:51)
[2022-04-09] MEDS ORDERED: Potassium Chloride 20 MEQ Tab.ER PO ONE (09:20)
[2022-04-09] MEDS: Levofloxacin/Dextrose 5%-Water 750 MG in Premix Bag 1 BAG IV SCH (09:55)
[2022-04-09] MEDS ORDERED: Warfarin 5 MG Tab PO SCH (14:00)
[2022-04-09] MEDS: Warfarin Sliding Scale PO SCH (15:12)
[2022-04-09] MEDS: atorvaSTATin 20 MG Tab PO SCH (20:43)
[2022-04-10 06:51] LABS: BLOOD UREA NITROGEN,BUN 11 mg/dL (7.0-18.0); CARBON DIOXIDE,CO2 28.4 mmol/L (21.0-32.0); CHLORIDE,CL 102 mmol/L (98-107); GLUCOSE RANDOM 108 mg/dL (74-106); POTASSIUM,K 3.9 mmol/L (3.5-5.1); SODIUM,NA 138 mmol/L (136-148)
[2022-04-10 06:55] LABS: ESTIMATED GFR > 60.0 ml/min
[2022-04-10] MEDS: Pantoprazole 40 MG in Sodium Chloride 0.9% 10 ML IVPUSH SCH (11:06)
[2022-04-10] MEDS: Metoprolol Succinate 100 MG Tab.ER PO SCH (11:09)
[2022-04-10] MEDS: Finasteride 5 MG Tab PO SCH (11:10)
[2022-04-10] MEDS: Aspirin 81 MG Tab.EC PO SCH (11:11)
[2022-04-10] MEDS: Acidophilus with Citrus Pectin/L.acidophilus Tab PO SCH (11:11)
[2022-04-10] MEDS: Pantoprazole 40 MG Tab.CR PO SCH (11:11)
[2022-04-10] MEDS: cefTRIAXone 2 GM in Premix Bag 1 BAG IV SCH (11:13)
[2022-04-10] MEDS: Levofloxacin/Dextrose 5%-Water 750 MG in Premix Bag 1 BAG IV SCH (12:19)
[2022-04-10] MEDS ORDERED: Warfarin 2.5 MG Tab PO SCH (14:00)
[2022-04-10] MEDS: Warfarin Sliding Scale PO SCH (14:50)
[2022-04-10] MEDS: atorvaSTATin 20 MG Tab PO SCH (21:09)
[2022-04-11 07:36] LABS: BLOOD UREA NITROGEN,BUN 12 mg/dL (7.0-18.0); CARBON DIOXIDE,CO2 29.9 mmol/L (21.0-32.0); GLUCOSE RANDOM 113 mg/dL (74-106)
[2022-04-11 07:43] LABS: CHLORIDE,CL 103 mmol/L (98-107); POTASSIUM,K 3.8 mmol/L (3.5-5.1); SODIUM,NA 141 mmol/L (136-148)
[2022-04-11 07:44] LABS: ESTIMATED GFR > 60.0 ml/min
[2022-04-11] MEDS: Metoprolol Succinate 100 MG Tab.ER PO SCH (08:09)
[2022-04-11] MEDS: Acidophilus with Citrus Pectin/L.acidophilus Tab PO SCH (08:10)
[2022-04-11] MEDS: Finasteride 5 MG Tab PO SCH (08:10)
[2022-04-11] MEDS: Aspirin 81 MG Tab.EC PO SCH (08:11)
[2022-04-11] MEDS: Pantoprazole 40 MG Tab.CR PO SCH (08:11)
[2022-04-11] MEDS: Levofloxacin/Dextrose 5%-Water 750 MG in Premix Bag 1 BAG IV SCH (09:51)
[2022-04-11] MEDS ORDERED: Warfarin 5 MG Tab PO SCH (14:00)
[2022-04-11] MEDS: Warfarin Sliding Scale PO SCH (14:14)
[2022-04-11] MEDS: atorvaSTATin 20 MG Tab PO SCH (21:29)
[2022-04-12 07:20] LABS: POTASSIUM,K 3.7 mmol/L (3.5-5.1)
[2022-04-12] MEDS: Acidophilus with Citrus Pectin/L.acidophilus Tab PO SCH (08:14)
[2022-04-12] MEDS: Finasteride 5 MG Tab PO SCH (08:14)
[2022-04-12] MEDS: Aspirin 81 MG Tab.EC PO SCH (08:14)
[2022-04-12] MEDS: Pantoprazole 40 MG Tab.CR PO SCH (08:14)
[2022-04-12] MEDS: Metoprolol Succinate 100 MG Tab.ER PO SCH (08:15)
[2022-04-12] MEDS: Levofloxacin/Dextrose 5%-Water 750 MG in Premix Bag 1 BAG IV SCH (08:56)
[2022-04-12] MEDS ORDERED: Warfarin 5 MG Tab PO SCH (14:00)
[2022-04-12] MEDS: Warfarin Sliding Scale PO SCH (14:06)
[2022-04-12] MEDS: atorvaSTATin 20 MG Tab PO SCH (21:44)
[2022-04-13 07:06] LABS: CARBON DIOXIDE,CO2 27.9 mmol/L (21.0-32.0)
[2022-04-13 09:41] VITALS: BP 115/70; PULSE 83
[2022-04-13] MEDS: Levofloxacin/Dextrose 5%-Water 750 MG in Premix Bag 1 BAG IV SCH (09:42)
[2022-04-13] MEDS: Acidophilus with Citrus Pectin/L.acidophilus Tab PO SCH (09:42)
[2022-04-13] MEDS: Finasteride 5 MG Tab PO SCH (09:43)
[2022-04-13] MEDS: Metoprolol Succinate 100 MG Tab.ER PO SCH (09:43)
[2022-04-13] MEDS: Aspirin 81 MG Tab.EC PO SCH (09:44)
[2022-04-13] MEDS: Pantoprazole 40 MG Tab.CR PO SCH (09:44)
[2022-04-13] MEDS ORDERED: Warfarin 5 MG Tab PO SCH (14:00)
== END 2022-04-13 11:42 | disposition home or self-care (01) | DRG 872 ==
LOC: MW.ED 20:55 → MW.MS 23:32
PROVIDERS: ADMIT Student in an Organized Health Care Education/Training Program; ATTEND Student in an Organized Health Care Education/Training Program
DX: A41.9 Sepsis, unspecified organism (principal); N39.0 Urinary tract infection, site not specified; N17.9 Acute kidney failure, unspecified; N45.3 Epididymo-orchitis; R65.20 Severe sepsis without septic shock; Z95.2 Presence of prosthetic heart valve; I48.91 Unspecified atrial fibrillation; Z85.820 Personal history of malignant melanoma of skin; E78.5 Hyperlipidemia, unspecified; Z79.82 Long term (current) use of aspirin; I10 Essential (primary) hypertension; N40.0 Benign prostatic hyperplasia without lower urinary tract symptoms; Z79.01 Long term (current) use of anticoagulants; Z79.899 Other long term (current) drug therapy; E78.00 Pure hypercholesterolemia, unspecified; Z86.010 Personal history of colon polyps; E66.9 Obesity, unspecified; Z85.828 Personal history of other malignant neoplasm of skin; Z86.19 Personal history of other infectious and parasitic diseases; Z20.822 Contact with and (suspected) exposure to COVID-19; Z68.36 Body mass index [BMI] 36.0-36.9, adult
CPT/HCPCS: 0240U; 36415; 71045; 76870; 80048; 80053; 81001; 83605; 83735; 84100; 85025; 85610; 87040; 87086; 87088; 87186; 87324; 93005; 93976; 96365; 96375; 97110; 97161; 99285; A9270-GY; C9113; J0696; J1956; J2405; J3475; J3490; J7030; J7120

== ENCOUNTER 2022-08-19 09:48 | Emergency (ER) | payer MEDICARE, BC ==
[2022-08-19] MEDS ORDERED: Oxymetazoline 0.05% Nasal Spray 30 ML Bottle NAS ONE (10:00)
[2022-08-19] MEDS ORDERED: Tranexamic Acid 1,000 MG in Sodium Chloride 0.9% 100 ML IV ONE (10:01)
[2022-08-19] MEDS ORDERED: Tranexamic Acid 1,000 MG/10 ML Vial IVPUSH ONE (10:15)
[2022-08-19 12:04] VITALS: BP 141/79; PULSE 59
== END 2022-08-19 11:41 | disposition home or self-care (01) ==
LOC: MW.ED 09:48
DX: R04.0 Epistaxis (principal); E78.00 Pure hypercholesterolemia, unspecified; I10 Essential (primary) hypertension; E66.9 Obesity, unspecified; Z68.34 Body mass index [BMI] 34.0-34.9, adult; Z79.01 Long term (current) use of anticoagulants; Z79.899 Other long term (current) drug therapy; Z79.82 Long term (current) use of aspirin
CPT/HCPCS: 30901; 36415; 85610; 96374; 99283; A9270; 30905; 99282

== ENCOUNTER 2022-08-19 16:20 | Emergency (ER) | payer MEDICARE, BC ==
[2022-08-19 20:17] VITALS: BP 156/92; PULSE 87
== END 2022-08-19 20:17 | disposition home or self-care (01) ==
LOC: MW.ED 16:20
DX: R04.0 Epistaxis (principal); E78.00 Pure hypercholesterolemia, unspecified; I10 Essential (primary) hypertension; E66.9 Obesity, unspecified; Z68.34 Body mass index [BMI] 34.0-34.9, adult; Z79.899 Other long term (current) drug therapy; Z79.01 Long term (current) use of anticoagulants; Z79.82 Long term (current) use of aspirin
CPT/HCPCS: 99281; 99282

== ENCOUNTER 2022-08-26 06:07 | Emergency (ER) | payer MEDICARE, BC ==
[2022-08-26] MEDS ORDERED: Lidocaine 2% 11 ML Jelly Filled Syringe MUCMEM STA (06:14)
[2022-08-26] MEDS ORDERED: Oxymetazoline 0.05% Nasal Spray 30 ML Bottle NAS ONE (06:14)
[2022-08-26 07:44] VITALS: BP 120/70; PULSE 62
== END 2022-08-26 07:44 | disposition home or self-care (01) ==
LOC: MW.ED 06:07
DX: R04.0 Epistaxis (principal); I48.91 Unspecified atrial fibrillation; E78.00 Pure hypercholesterolemia, unspecified; I10 Essential (primary) hypertension; N40.0 Benign prostatic hyperplasia without lower urinary tract symptoms; E66.9 Obesity, unspecified; Z68.33 Body mass index [BMI] 33.0-33.9, adult; Z79.82 Long term (current) use of aspirin; Z79.899 Other long term (current) drug therapy; Z79.01 Long term (current) use of anticoagulants
CPT/HCPCS: 30903; 36415; 85025; 85610; 99283; A9270

== ENCOUNTER 2022-09-02 11:53 | Emergency (ER) | payer MEDICARE, BC ==
[2022-09-02 15:10] VITALS: BP 135/73; PULSE 52
== END 2022-09-02 14:59 | disposition home or self-care (01) ==
LOC: MW.ED 11:53
DX: R04.0 Epistaxis (principal); E78.00 Pure hypercholesterolemia, unspecified; I10 Essential (primary) hypertension; E66.9 Obesity, unspecified; Z68.34 Body mass index [BMI] 34.0-34.9, adult; Z79.01 Long term (current) use of anticoagulants; Z79.899 Other long term (current) drug therapy
CPT/HCPCS: 30901; 36415; 85610; 99283

== ENCOUNTER 2023-03-22 21:36 | Emergency (ER) | payer MEDICARE, BC ==
[2023-03-22] MEDS ORDERED: Lidocaine 2% 5 ML SDV INJECT ONE (21:43)
[2023-03-22] MEDS ORDERED: Diphtheria,Pertussis(Acell),Tetanus Vaccine 0.5 ML Syringe IM ONE (21:43)
[2023-03-22] MEDS ORDERED: Lidocaine 1% 5 ML VIAL INJECT ONE (22:03)
[2023-03-23 02:15] VITALS: BP 148/81; PULSE 80
== END 2023-03-23 00:13 | disposition home or self-care (01) ==
LOC: MW.ED 21:36
DX: S02.2XXA Fracture of nasal bones, initial encounter for closed fracture (principal); S01.21XA Laceration without foreign body of nose, initial encounter; K03.81 Cracked tooth; I48.91 Unspecified atrial fibrillation; I10 Essential (primary) hypertension; E78.00 Pure hypercholesterolemia, unspecified; E66.9 Obesity, unspecified; Z79.01 Long term (current) use of anticoagulants; Z79.899 Other long term (current) drug therapy; Z79.82 Long term (current) use of aspirin; W01.198A Fall on same level from slipping, tripping and stumbling with subsequent striking against other object, initial encounter
CPT/HCPCS: 12002; 12011; 70450; 70450-26; 73030-26-RT; 73030-RT; 90471; 90715; 99283; 99284; J3490

== ENCOUNTER 2024-02-22 07:40 | Day surgery (SDC) | payer MEDICARE ==
[2024-02-22] MEDS: Lactated Ringers 1,000 ML IV SCH (08:17)
[2024-02-22] MEDS ORDERED: propofoL 50 ML ONE (09:19)
[2024-02-22] MEDS ORDERED: Glycopyrrolate 0.2 MG/ML SDV ONE ×2 (09:27→09:29)
[2024-02-22] MEDS ORDERED: fentaNYL 100 MCG/2 ML SDV ONE (09:28)
[2024-02-22] MEDS ORDERED: Lactated Ringers 1,000 ML IV SCH (10:00)
[2024-02-22 13:19] VITALS: BP 133/89; PULSE 59
== END 2024-02-22 10:35 | disposition home or self-care (01) ==
LOC: MW.SDS 07:40
PROVIDERS: ATTEND Surgery
DX: Z12.11 Encounter for screening for malignant neoplasm of colon (principal); D12.3 Benign neoplasm of transverse colon; D12.5 Benign neoplasm of sigmoid colon; I10 Essential (primary) hypertension; E78.00 Pure hypercholesterolemia, unspecified; I48.91 Unspecified atrial fibrillation; E66.9 Obesity, unspecified; Z86.010 Personal history of colon polyps; Z80.0 Family history of malignant neoplasm of digestive organs; Z79.82 Long term (current) use of aspirin; Z79.01 Long term (current) use of anticoagulants; Z79.899 Other long term (current) drug therapy
CPT/HCPCS: 45380; 45385; 88305; J2704; J3010; J3490; J7120; 00811; 99100

== ENCOUNTER 2024-08-09 18:24 | Inpatient (IN) | payer MEDICARE ==
[2024-08-09 19:16] LABS: BILIRUBIN,URINE NEGATIVE (NEGATIVE); COLOR,URINE YELLOW; GLUCOSE,URINE NEGATIVE (NEGATIVE); KETONES,URINE NEGATIVE (NEGATIVE); LEUKOCYTE ESTERASE,URINE MODERATE (NEGATIVE); NITRITE,URINE POSITIVE (NEGATIVE); OCCULT BLOOD,URINE LARGE (NEGATIVE); PROTEIN,URINE NEGATIVE (NEGATIVE); UROBILINOGEN,URINE 0.2 EU/dL (<2.0)
[2024-08-09 19:45] LABS: APPEARANCE,URINE CLOUDY
[2024-08-09 19:50] LABS: BACTERIA,URINE 2+ (NEGATIVE); CALCIUM OXALATE CRYSTALS,URINE FEW (NEGATIVE); EPITHELIAL CELLS,URINE OCCASIONAL (NONE-FEW); WBC,URINE 20-30 (0-5/HPF)
[2024-08-09] MEDS: Sodium Chloride 0.9% 500 ML IV STA (20:14)
[2024-08-09] MEDS: Acetaminophen 500 MG Tab PO STA (20:14)
[2024-08-09] MEDS: Levofloxacin/Dextrose 5%-Water 750 MG in Premix Bag 1 BAG IV STA (20:14)
[2024-08-09 20:25] LABS: BASOPHILS ABSOLUTE AUTO 0.04 K/uL (0.00-0.20); BASOPHILS PERCENT AUTO 0.3 % (0.0-1.0); EOSINOPHILS ABSOLUTE AUTO 0.04 K/uL (0.00-0.45); EOSINOPHILS PERCENT AUTO 0.3 % (0.0-6.0); HEMATOCRIT 45.2 % (42.0-52.0); HEMOGLOBIN 15.4 g/dL (14.0-18.0); IMMATURE GRAN ABSOLUTE AUTO 0.03 K/uL (0.00-0.05); IMMATURE GRAN PERCENT AUTO 0.2 % (0.0-0.4); LYMPHOCYTES PERCENT AUTO 7.9 % (24.0-44.0); MEAN CORPUSCULAR HEMOGLOBIN 30.7 pg (28.0-32.0); MEAN CORPUSCULAR HGB CONC 34.1 g/dL (32.0-36.0); MEAN CORPUSCULAR VOLUME 90.2 fL (83.0-99.0); MEAN PLATELET VOLUME 10.5 fL (9.4-12.4); MONOCYTES ABSOLUTE AUTO 1.09 K/uL (0.00-0.80); MONOCYTES PERCENT AUTO 8.6 % (0.0-8.0); NEUTROPHILS ABSOLUTE AUTO 10.53 K/uL (1.80-7.70); NEUTROPHILS PERCENT AUTO 82.7 % (41.0-71.0); PLATELET COUNT,PLT 149 K/uL (150-400); RED BLOOD CELL COUNT 5.01 M/uL (4.52-5.90); WHITE BLOOD CELL COUNT,WBC 12.73 K/uL (3.9-11.3)
[2024-08-09 20:49] LABS: BILIRUBIN TOTAL 1.9 mg/dL (0.2-1.0); CALCIUM 9.7 mg/dL (8.5-10.1); CARBON DIOXIDE,CO2 29.3 mmol/L (21.0-32.0); CREATININE 1.3 mg/dL (0.8-1.3); EST CRCL DRUG DOSING (CG) 53.06 mL/min; POTASSIUM,K 4.8 mmol/L (3.5-5.1)
[2024-08-09 20:54] LABS: LACTIC ACID 2.8 mmol/L (0.4-2.0)
[2024-08-09] MEDS: Sodium Chloride 0.9% 1,000 ML IV STA (21:38)
[2024-08-09 22:14] LABS: INR 2.35 (0.86-1.11)
[2024-08-09] MEDS ORDERED: Acetaminophen 325 MG Tab PO PRN (23:29)
[2024-08-10] MEDS: Sodium Chloride 0.9% 1,000 ML IV SCH (01:10)
[2024-08-10] MEDS: Cefepime 2 GM in Sodium Chloride 0.9% 50 ML IV SCH (02:28)
[2024-08-10 06:57] LABS: HEMATOCRIT 40.5 % (42.0-52.0); HEMOGLOBIN 13.7 g/dL (14.0-18.0); MEAN CORPUSCULAR HEMOGLOBIN 30.4 pg (28.0-32.0); MEAN CORPUSCULAR HGB CONC 33.8 g/dL (32.0-36.0); MEAN PLATELET VOLUME 10.4 fL (9.4-12.4); PLATELET COUNT,PLT 134 K/uL (150-400); WHITE BLOOD CELL COUNT,WBC 15.17 K/uL (3.9-11.3)
[2024-08-10 07:10] LABS: CALCIUM 8.6 mg/dL (8.5-10.1); CARBON DIOXIDE,CO2 25.8 mmol/L (21.0-32.0); CREATININE 1.3 mg/dL (0.8-1.3); EST CRCL DRUG DOSING (CG) 53.06 mL/min; POTASSIUM,K 4.5 mmol/L (3.5-5.1)
[2024-08-10 07:30] LABS: SEG NEUTROPHILS ABSOLUTE MAN 10.92 K/uL (1.80-7.70); SEG NEUTROPHILS PERCENT MAN 72 % (41-71)
[2024-08-10 07:31] LABS: BAND ABSOLUTE MAN 0.61; BAND PERCENT MAN 4 %; BASOPHILS PERCENT MAN 0 % (0-1); EOSINOPHILS PERCENT MAN 0 % (0-6); LYMPHOCYTES ABSOLUTE MAN 2.43 K/uL (1.00-4.80); LYMPHOCYTES PERCENT MAN 16 % (24-44); MONOCYTES ABSOLUTE MAN 1.21 K/uL (0.00-0.80); MONOCYTES PERCENT MAN 8 % (0-8)
[2024-08-10] MEDS: Spironolactone 25 MG Tab PO SCH (09:20)
[2024-08-10] MEDS: Losartan 25 MG Tab PO SCH (09:20)
[2024-08-10] MEDS: Finasteride 5 MG Tab PO SCH (09:21)
[2024-08-10] MEDS: Aspirin 81 MG Tab.EC PO SCH (11:13)
[2024-08-10] MEDS ORDERED: Warfarin Sliding Scale PO SCH ×2 (14:00→14:15)
[2024-08-10] MEDS ORDERED: Warfarin** 1 MG TABLET PO SCH (14:00)
[2024-08-10] MEDS: Warfarin 2 MG Tab PO SCH ×3 (14:12→21:20)
[2024-08-10] MEDS: Ondansetron 4 MG Tab.DIS PO PRN (14:15)
[2024-08-10] MEDS: MEXILETINE HCL 150 MG PO SCH (16:35)
[2024-08-10] MEDS ORDERED: Levofloxacin/Dextrose 5%-Water 750 MG in Premix Bag 1 BAG IV SCH (19:00)
[2024-08-10] MEDS ORDERED: Warfarin 5 MG Tab PO SCH (21:00)
[2024-08-10] MEDS: atorvaSTATin 20 MG Tab PO SCH (21:20)
[2024-08-10] MEDS: Metoprolol Succinate 50 MG Tab.ER PO SCH (21:21)
[2024-08-10] MEDS: Warfarin Sliding Scale PO SCH (21:25)
[2024-08-10] MEDS: MEXILITINE PO SCH (23:58)
[2024-08-11 06:35] LABS: INR 2.51 (0.86-1.11)
[2024-08-11 08:12] LABS: BASOPHILS ABSOLUTE AUTO 0.04 K/uL (0.00-0.20); BASOPHILS PERCENT AUTO 0.4 % (0.0-1.0); EOSINOPHILS ABSOLUTE AUTO 0.11 K/uL (0.00-0.45); EOSINOPHILS PERCENT AUTO 1.1 % (0.0-6.0); HEMATOCRIT 44.5 % (42.0-52.0); HEMOGLOBIN 14.7 g/dL (14.0-18.0); IMMATURE GRAN ABSOLUTE AUTO 0.03 K/uL (0.00-0.05); IMMATURE GRAN PERCENT AUTO 0.3 % (0.0-0.4); LYMPHOCYTES ABSOLUTE AUTO 1.73 K/uL (1.00-4.80); LYMPHOCYTES PERCENT AUTO 16.9 % (24.0-44.0); MEAN CORPUSCULAR HEMOGLOBIN 30.1 pg (28.0-32.0); MEAN CORPUSCULAR VOLUME 91.2 fL (83.0-99.0); MEAN PLATELET VOLUME 10.6 fL (9.4-12.4); MONOCYTES PERCENT AUTO 9.7 % (0.0-8.0); NEUTROPHILS ABSOLUTE AUTO 7.35 K/uL (1.80-7.70); NEUTROPHILS PERCENT AUTO 71.6 % (41.0-71.0); PLATELET COUNT,PLT 144 K/uL (150-400); RED BLOOD CELL COUNT 4.88 M/uL (4.52-5.90); WHITE BLOOD CELL COUNT,WBC 10.26 K/uL (3.9-11.3)
[2024-08-11 08:59] LABS: A/G RATIO 0.9 (0.9-1.6); ALBUMIN 3.5 g/dL (3.4-5.0); BILIRUBIN TOTAL 2.9 mg/dL (0.2-1.0); CARBON DIOXIDE,CO2 29.6 mmol/L (21.0-32.0); CREATININE 1.3 mg/dL (0.8-1.3); EST CRCL DRUG DOSING (CG) 53.06 mL/min; POTASSIUM,K 4.2 mmol/L (3.5-5.1); PROTEIN TOTAL,TP 7.4 g/dL (6.4-8.2)
[2024-08-11] MEDS: Warfarin 2 MG Tab PO SCH (22:31)
[2024-08-12 06:25] LABS: BASOPHILS ABSOLUTE AUTO 0.05 K/uL (0.00-0.20); BASOPHILS PERCENT AUTO 0.7 % (0.0-1.0); EOSINOPHILS ABSOLUTE AUTO 0.16 K/uL (0.00-0.45); EOSINOPHILS PERCENT AUTO 2.2 % (0.0-6.0); HEMATOCRIT 41.1 % (42.0-52.0); HEMOGLOBIN 13.7 g/dL (14.0-18.0); IMMATURE GRAN ABSOLUTE AUTO 0.02 K/uL (0.00-0.05); IMMATURE GRAN PERCENT AUTO 0.3 % (0.0-0.4); LYMPHOCYTES ABSOLUTE AUTO 1.54 K/uL (1.00-4.80); LYMPHOCYTES PERCENT AUTO 21.1 % (24.0-44.0); MEAN CORPUSCULAR HEMOGLOBIN 30.3 pg (28.0-32.0); MEAN CORPUSCULAR HGB CONC 33.3 g/dL (32.0-36.0); MEAN CORPUSCULAR VOLUME 90.9 fL (83.0-99.0); MEAN PLATELET VOLUME 10.6 fL (9.4-12.4); MONOCYTES ABSOLUTE AUTO 0.84 K/uL (0.00-0.80); MONOCYTES PERCENT AUTO 11.5 % (0.0-8.0); NEUTROPHILS ABSOLUTE AUTO 4.69 K/uL (1.80-7.70); NEUTROPHILS PERCENT AUTO 64.2 % (41.0-71.0); PLATELET COUNT,PLT 150 K/uL (150-400); RED BLOOD CELL COUNT 4.52 M/uL (4.52-5.90)
[2024-08-12 06:36] LABS: INR 2.21 (0.86-1.11)
[2024-08-12 06:48] LABS: A/G RATIO 0.8 (0.9-1.6); ALBUMIN 2.9 g/dL (3.4-5.0); BILIRUBIN TOTAL 1.8 mg/dL (0.2-1.0); CALCIUM 8.6 mg/dL (8.5-10.1); CARBON DIOXIDE,CO2 27.6 mmol/L (21.0-32.0); CREATININE 1.2 mg/dL (0.8-1.3); EST CRCL DRUG DOSING (CG) 57.48 mL/min; PROTEIN TOTAL,TP 6.7 g/dL (6.4-8.2)
[2024-08-12 11:54] VITALS: BP 151/68; PULSE 76
[2024-08-12] MEDS ORDERED: FLU (Fluad Triv) TS24-25 (65UP)/MF59C/PF 45 MCG/0.5 ML Syringe IM ONE (12:00)
[2024-08-12] MEDS: FLU (Fluad Triv) TS24-25 (65UP)/MF59C/PF 45 MCG/0.5 ML Syringe IM ONE (12:19)
[2024-08-12] MEDS ORDERED: Warfarin 2 MG Tab PO SCH (21:00)
[2024-08-15] MEDS ORDERED: FLU (Fluad Triv) TS24-25 (65UP)/MF59C/PF 45 MCG/0.5 ML Syringe IM ONE (10:15)
== END 2024-08-12 13:50 | disposition home or self-care (01) | DRG 690 ==
LOC: MW.ED 18:24 → MW.MS 21:35
PROVIDERS: ADMIT Internal Medicine; ATTEND Internal Medicine
DX: N39.0 Urinary tract infection, site not specified (principal); N20.0 Calculus of kidney; I48.20 Chronic atrial fibrillation, unspecified; N40.0 Benign prostatic hyperplasia without lower urinary tract symptoms; I10 Essential (primary) hypertension; I48.91 Unspecified atrial fibrillation; E78.00 Pure hypercholesterolemia, unspecified; E66.9 Obesity, unspecified; N21.0 Calculus in bladder; B96.5 Pseudomonas (aeruginosa) (mallei) (pseudomallei) as the cause of diseases classified elsewhere; Z95.2 Presence of prosthetic heart valve; Z75.8 Other problems related to medical facilities and other health care; Z79.01 Long term (current) use of anticoagulants; Z68.35 Body mass index [BMI] 35.0-35.9, adult; Z79.82 Long term (current) use of aspirin; Z79.899 Other long term (current) drug therapy; Z98.890 Other specified postprocedural states; Z86.0100 Personal history of colon polyps, unspecified
CPT/HCPCS: 36415; 74176; 80053; 81001; 83605; 83690; 85025; 85610; 87040 ×2; 87086; 87088; 87186; 96365; 99285; A9270; J1956; J7040; 80048; 90653; G0008; J0692; J3490; J7030